=== PATIENT | male | born 1985 | race Two or more races ===

== ENCOUNTER 2019-03-09 16:50 | Emergency (ER) | payer SELFPAY ==
[~2019-03-09] VITALS: Ht 172.7 cm; Wt 72.6 kg
[2019-03-09 17:00] VITALS: BP 136/81
== END 2019-03-09 20:47 | disposition left against medical advice (07) ==
LOC: ER 16:50
DX: L02.01 Cutaneous abscess of face (principal); Z53.21 Procedure and treatment not carried out due to patient leaving prior to being seen by health care provider